=== PATIENT | female | born 1990 | race Caucasian/White ===

== ENCOUNTER 2017-01-20 16:23 | Emergency (ER) | payer OTHER ==
[2017-01-20 16:41] VITALS: BP 136/76
--- NOTE | 2017-01-20 17:32 | RAD ---
Indication: Left index finger injury. 3 views of left index finger demonstrates no fracture. No other bone or joint abnormality is identified. IMPRESSION: No fracture of the left index finger is noted.
[2017-01-20] MEDS ORDERED: Tetan/Diph/Pertus SYR(Tdap)* 0.5 ML SYR(BOOSTRIX) use SYR IM ONE (17:44)
--- NOTE | 2017-01-20 19:04 | UC ---
Hand/Wrist HPI - HPI Summary HPI Summary: PAIN AND SWELLING AND WARMTH FOR THREE DAYS IN LEFT INDEX FINGER, TENDER WHEN MOVING (MIP PIP) JOINTS. NO KNOWN TRAUMA. NO HISTORY OF GOUT. NO ANIMAL BITES. - History Of Current Complaint Hx Obtained From: Patient Hx Last Menstrual Period: 01/01/17 Onset/Duration: Gradual Onset, Lasting Days Severity Initially: Moderate Severity Currently: Moderate Pain Intensity: 5 Pain Scale Used: 0-10 Numeric Character Of Pain: Dull, Aching, Stiffness Aggravating Factor(s): Flexion, Extension Alleviating Factor(s): Nothing Associated Signs And Symptoms: Positive: Swelling, Redness Related History: Dominant Hand Right <Bishop Cox - Last Filed: 01/20/17 18:58> <Tosin Brandon - Last Filed: 01/20/17 19:51> - History Of Current Complaint Chief Complaint: [employer] Stated Complaint: HAND INJURY Time Seen by Provider: 01/20/17 16:51 - Allergies/Home Medications Allergies/Adverse Reactions: Allergies Allergy/AdvReac Type Severity Reaction Status Date / Time Ibuprofen Allergy Hives Verified 12/23/14 02:14 Naproxen Allergy Hives Verified 01/20/17 16:33 Home Medications: Home Medications Acetaminophen [Acetaminophen Extra Stren] 500 mg PO DAILY 01/20/17 [History Confirmed 01/20/17] PMH/Surg Hx/FS Hx/Imm Hx Previously Healthy: Yes - Surgical History Surgery Procedure, Year, and Place: 2014 - - Family History Known Family History: Negative: Blood Disorder - Social History Occupation: Employed Full-time Lives: With Family Alcohol Use: None Substance Use Type: None Smoking Status (MU): Never Smoked Tobacco - Immunization History Most Recent Influenza Vaccination: 11/29/14 Most Recent Tetanus Shot: 09/27/14 Most Recent Pneumonia Vaccination: none <Bishop Cox - Last Filed: 01/20/17 18:58> Review of Systems Constitutional: Negative Skin: Negative Eyes: Negative ENT: Negative Respiratory: Negative Cardiovascular: Negative Gastrointestinal: Negative Genitourinary: Negative Motor: Negative Neurovascular: Negative Musculoskeletal: Arthralgia, Myalgia Neurological: Negative Psychological: Negative Is Patient Immunocompromised?: No All Other Systems Reviewed And Are Negative: Yes <Bishop Cox - Last Filed: 01/20/17 18:58> Physical Exam Triage Information Reviewed: Yes Appearance: Well-Appearing, No Pain Distress, Well-Nourished Vital Signs: Initial Vital Signs Temp 99.2 F 01/20/17 16:34 Pulse 81 01/20/17 16:34 Resp 16 01/20/17 16:34 BP 136/76 01/20/17 16:34 Pulse Ox 100 01/20/17 16:34 Vital Signs Reviewed: Yes Eye Exam: Normal ENT Exam: Normal ENT: Positive: Normal ENT inspection, Hearing grossly normal, Pharynx normal Dental Exam: Normal Neck exam: Normal Neck: Positive: Supple, Nontender Respiratory Exam: Normal Respiratory: Positive: Chest non-tender, Lungs clear, Normal breath sounds, No respiratory distress Cardiovascular Exam: Normal Cardiovascular: Positive: RRR, No Murmur, Pulses Normal Abdominal Exam: Normal Musculoskeletal: Positive: Strength Intact, ROM Limited @ - FLEXION LEFT INDEX FINGER, Edema @ - LEFT INDEX FINGER Neurological Exam: Normal Psychological Exam: Normal Skin: Positive: Other - WARMTH ERYTHEMA LEFT INDEX FINGER <Bishop Cox - Last Filed: 01/20/17 18:58> Vital Signs: Initial Vital Signs Temp 99.2 F 01/20/17 16:34 Pulse 81 01/20/17 16:34 Resp 16 01/20/17 16:34 BP 136/76 01/20/17 16:34 Pulse Ox 100 01/20/17 16:34 <Tosin Brandon - Last Filed: 01/20/17 19:51> Diagnostics - Radiology No standard instances Radiology Interpretation Completed By: Radiologist - Interpreted by radiologist , reviewed by SHONNA. Interpretation : NO FRACTURE OR DISLOCATION <Bishop Cox - Last Filed: 01/20/17 18:58> Hand/Wrist Course/Dx - Differential Dx/Diagnosis Differential Diagnosis/HQI/PQRI: Cellulitis, Felon, Infection, Sprain Provider Diagnoses: LEFT SECOND FINGER CELLULITIS. <Bishop Cox - Last Filed: 01/20/17 18:58> Discharge <Bishop Cox - Last Filed: 01/20/17 18:58> <Tosin Brandon - Last Filed: 01/20/17 19:51> - Discharge Plan Condition: Stable Disposition: HOME Prescriptions: Cephalexin CAP* [Keflex CAP*] 500 mg PO QID #40 cap Patient Education Materials: Cellulitis (ED), Swollen Joint (ED) Referrals: [facility] [place] [facility]IAN REFERRAL [Outside] Vern Torres MD [Medical Doctor] - No Primary Care Phys,NOPCP [Primary Care Provider] - Attestation Statement User Type: Provider - I was available for consult. This patient was seen by the MELIDA. The patient was not presented to, seen by, or examined by me. -Mayra <Tosin Brandon - Last Filed: 01/20/17 19:51>
== END 2017-01-20 17:58 | disposition home or self-care (01) ==
LOC: UCEAST 16:23
DX: L03.012 Cellulitis of left finger (principal)
CPT/HCPCS: 73140; 90471; 90715; 99212; G0463

== ENCOUNTER 2023-08-10 05:32 | Inpatient (IN) ==
[2023-08-10 06:58] LABS: ABS Eosinophils 0.1 10^3/uL (0.0-0.5); ABS Lymphocytes 1.8 10^3/uL (1.0-4.8); ABS Monocytes 0.7 10^3/uL (0.0-0.9); ABS Neutrophils 5.9 10^3/uL (1.5-7.6); ABS Nucleated RBC 0.01 10^3/ul; Eosinophil % 1.7 %; Hematocrit 35.9 % (35-45); Hemoglobin 12.3 g/dL (11.5-14.3); Lymphocyte % 21.4 %; Mean Corpuscular Hgb Conc 34.1 g/dL (31-36); Mean Corpuscular Volume 90.9 fL (80-97); Mean Platelet Volume 6.4 fL (7.5-11.2); Nucleated Red Blood Cells % 0.1 %/100WBC (0.0-0.8); Platelet Count 283 10^3/uL (150-450); Red Blood Count 3.95 10^6/uL (3.63-4.92); Red Cell Distribution Width 14.2 % (12-17); White Blood Count 8.5 10^3/uL (3.8-11.8)
[2023-08-10] MEDS: Sodium Citrate/Citric Acid LIQ 15 ML UDC PO ONE (08:52)
[2023-08-10] MEDS ORDERED: Oxytocin 10 UNITS/ML 1 ML VIAL ONE (08:53)
[2023-08-10] MEDS ORDERED: Dexamethasone IV 4 MG/ML VIAL 1 ml VIAL ONE (08:53)
[2023-08-10] MEDS ORDERED: Ondansetron 4 mg VIAL 2 MG/ML 2 ml VIAL ONE (08:53)
[2023-08-10] MEDS ORDERED: Morphine PF AMP (0.5MG/ML) 5 MG/10 ML AMP ONE (08:53)
[2023-08-10] MEDS ORDERED: Acetaminophen IV 1 GM/100ML 1,000 MG/100 ML BAG IV ONE (08:54)
[2023-08-10] MEDS ORDERED: Phenylephrine 40 mcg/mL 10mL (400mcg) SYRINGE ONE ×2 (09:20→09:53)
[2023-08-10] MEDS ORDERED: Bupivacaine-MPF SPINAL 7.5 MG/ML - 2ML AMP ONE (09:33)
[2023-08-10 11:03] LABS: Urine Benzodiazepine Screen None Detected (None Detect); Urine Cannabinoids Screen None Detected (None Detect); Urine Opiates Screen None Detected (None Detect)
[2023-08-10 11:09] LABS: Urine Appearance Clear; Urine Bilirubin Negative (Negative); Urine Blood Negative (Negative); Urine Color Colorless; Urine Glucose Negative (Negative); Urine Ketones Negative (Negative); Urine Nitrite Negative (Negative); Urine Protein Negative (Negative); Urine Specific Gravity 1.007 (1.002-1.030); Urine Urobilinogen Negative (Negative); Urine pH 7.5 (5.0-8.0)
[2023-08-10] MEDS ORDERED: Witch Hazel PAD JAR TOPICAL PRN (11:09)
[2023-08-10] MEDS ORDERED: Glycerin ADULT 2.4 gm SUPP PR PRN (11:09)
[2023-08-10] MEDS ORDERED: Dibucaine 1% OINT 28.35 GM TUBE PR PRN (11:09)
[2023-08-10] MEDS: ceFOXitin 2 GM IVPREMIX 2 GM/50 ML BAG IVPB ONE (11:20)
[2023-08-10] MEDS: Carboprost Tromethamine 250 mcg 1 ml VIAL ONE (11:21)
[2023-08-10] MEDS: Buffered Lidocaine 1% SYRIN 1 ml INTRADERM ONE (11:21)
[2023-08-10] MEDS: Methylergonovine 0.2 mg AMPULE 1 ml AMP ONE (11:22)
[2023-08-10] MEDS: Lactated Ringers 1000 ml BAG 1,000 ML IV ONE (11:23)
[2023-08-10] MEDS ORDERED: Lactated Ringers 1000 ml BAG 1,000 ML IV SCH (12:00)
[2023-08-10] MEDS: Oxytocin in LR 20,000 MILLI.UNIT/1,000 ML BAG IV SCH (14:45)
[2023-08-11 07:01] LABS: ABS Lymphocytes 1.4 10^3/uL (1.0-4.8); ABS Monocytes 0.8 10^3/uL (0.0-0.9); ABS Neutrophils 8.7 10^3/uL (1.5-7.6); Eosinophil % 0.4 %; Hematocrit 36.8 % (35-45); Hemoglobin 12.4 g/dL (11.5-14.3); Lymphocyte % 12.9 %; Mean Corpuscular Hemoglobin 31.1 pg (27-33); Mean Corpuscular Hgb Conc 33.8 g/dL (31-36); Mean Corpuscular Volume 91.9 fL (80-97); Mean Platelet Volume 6.3 fL (7.5-11.2); Platelet Count 251 10^3/uL (150-450); Red Cell Distribution Width 14.3 % (12-17)
[2023-08-11] MEDS: Lactated Ringers 1000 ml BAG 1,000 ML IV SCH (20:14)
[2023-08-12 07:48] VITALS: BP 128/85
== END 2023-08-12 14:07 | disposition home or self-care (01) | DRG 540 ==
LOC: MCHOB 05:32
PROVIDERS: ADMIT Obstetrics & Gynecology; ATTEND Obstetrics & Gynecology